=== PATIENT | female | born 1995 | race Caucasian/White ===

== ENCOUNTER 2017-04-30 11:26 | Emergency (ER) | payer BC, MEDICAID ==
[~2017-04-30] VITALS: Ht 147.3 cm; Wt 59.9 kg
--- NOTE | 2017-04-30 11:57 | NUR ---
Patient discharged to home in stable conditon. Written and verbal after care instructions given to patient. Patient verbalizes understanding of instructions.
== END 2017-04-30 11:58 | disposition home or self-care (01) ==
LOC: ER 11:47
DX: J20.9 Acute bronchitis, unspecified (principal); Z88.0 Allergy status to penicillin
CPT/HCPCS: 99283; A4663

== ENCOUNTER 2017-05-29 13:18 | Emergency (ER) | payer MEDICAID ==
[~2017-05-29] VITALS: Ht 147.3 cm; Wt 59.0 kg
--- NOTE | 2017-05-29 15:49 | NUR ---
DR MARKS AT THE BEDSIDE FOR EVAL AND EXAM.
[2017-05-29] MEDS ORDERED: KETOROLAC TROMETHAMINE 15 MG INJ IV ONE (16:00)
[2017-05-29] MEDS ORDERED: IV NORMAL SALINE 1000 ML BAG IV ONE (16:00)
[2017-05-29 16:33] LABS: BASOPHILS # (AUTO) 0.1 K/uL (0.0-8.0); BASOPHILS % (AUTO) 1.4 % (0.0-2.0); EOSINOPHILS % (AUTO) 0.1 % (0.0-7.0); HEMATOCRIT 39.4 % (37-47); HEMOGLOBIN 13.2 G/DL (12.0-16.0); LYMPHOCYTES # (AUTO) 0.9 K/UL (0.8-4.8); LYMPHOCYTES % (AUTO) 12.9 % (20.5-51.5); MEAN CORPUSCULAR HEMOGLOBIN 29.8 UUG (27.0-31.0); MEAN CORPUSCULAR HGB CONC 34 g/dL (32.0-37.0); MONOCYTES # (AUTO) 0.4 K/UL (0.1-1.30); MONOCYTES % (AUTO) 5.1 % (0.0-11.0); NEUTROPHILS # (AUTO) 5.5 K/UL (1.8-8.9); NEUTROPHILS % (AUTO) 80.5 % (38.5-71.5); PLATELET COUNT (AUTO) 480 K/UL (150-450); RED BLOOD CELL COUNT(AUTO) 4.43 MIL/UL (4.2-5.4); WHITE BLOOD COUNT (AUTO) 6.9 K/UL (4.0-11.2)
--- NOTE | 2017-05-29 16:36 | NUR ---
PT SIGNED CONSENT FOR IV CONTRAST, PLACED IN THE CHART.
[2017-05-29] MEDS ORDERED: KETOROLAC TROMETHAMINE 15 MG INJ ONE (16:44)
[2017-05-29 16:51] LABS: CARBON DIOXIDE 23 mmol/L (21-32); CHLORIDE 105 mmol/L (98-107); CREATININE 0.4 mg/dL (0.6-1.3); GLUCOSE 94 mg/dL (74-106); POTASSIUM 3.5 mmol/L (3.5-5.1); UREA NITROGEN, BLOOD 6 mg/dL (7-18)
[2017-05-29 16:56] LABS: ALANINE AMINOTRANSFERASE 55 U/L (14-59); ALKALINE PHOSPHATASE 84 U/L (50-136); ASPARTATE AMINOTRANSFERASE 29 U/L (15-37); BILIRUBIN,DIRECT 0.2 mg/dL (0.0-0.2); BILIRUBIN,TOTAL 0.9 mg/dL (0.2-1.0); LIPASE 72 U/L (73-393); TOTAL PROTEIN, SERUM 7.6 g/dL (6.4-8.2)
[2017-05-29] MEDS ORDERED: NORMAL SALINE FLUSH 10 ML DISP.SYRIN ONE (17:22)
[2017-05-29] MEDS ORDERED: IV NORMAL SALINE 250 ML IV ONE (17:22)
[2017-05-29] MEDS ORDERED: IOHEXOL 300MG/ML 100 ML INFUS..BTL ONE (17:22)
--- NOTE | 2017-05-29 17:23 | NUR ---
PT OUT OF ER FOR CT.
[2017-05-29 17:56] LABS: *BILIRUBIN,URIN NEGATIVE (NEGATIVE); *BLOOD, URINE 3+ (NEGATIVE); *CLARITY,URINE SLIGHTLY CLOUDY (CLEAR); *COLOR,URINE PINK (YELLOW); *KETONES,URINE TRACE (NEGATIVE); *PROTEIN,URINE NEGATIVE (NEGATIVE); *UROBILINOGEN,URINE 0.2 E.U./dl (NORMAL); LEUKOCYTE ESTERASE ,URINE 1+ (NEGATIVE); NITRITE, URINE NEGATIVE (NEGATIVE); UGLUCOSE NEGATIVE (NEGATIVE)
[2017-05-29 18:26] LABS: BACTERIA,URINE FEW /HPF (NONE SEEN); RBC,URINE 20-50 /HPF (0-3); SQUAMOUS EPITHELIAL CELL,UR FEW /HPF (NONE SEEN)
--- NOTE | 2017-05-29 19:08 | NUR ---
CARE ENDORSED TO FRANCHESKA GOLDMAN.
--- NOTE | 2017-05-29 19:15 | NUR ---
Received report from SUSI Marie. Assumed care of pt at this time. Pt resting in position of comfort for self. Pt sts pain is a 7/10 but declines medication at this time.
[2017-05-29] MEDS ORDERED: HYDROCODONE/APAP 10-325 MG TABLET PO ONE (19:45)
[2017-05-29] MEDS ORDERED: ONDANSETRON ODT 4 MG TAB.RAPDIS SL ONE (19:45)
--- NOTE | 2017-05-29 19:45 | NUR ---
pt requesting pain medication. Dr. Pal notified. Awaiting further orders.
[2017-05-29 20:03] VITALS: BP 109/58
[2017-05-29] MEDS ORDERED: ONDANSETRON ODT 4 MG TAB.RAPDIS ONE (20:03)
[2017-05-29] MEDS ORDERED: HYDROCODONE/APAP 10-325 MG TABLET ONE (20:03)
== END 2017-05-29 20:03 | disposition home or self-care (01) ==
LOC: ER 13:19
DX: M25.551 Pain in right hip (principal); M25.552 Pain in left hip; J45.909 Unspecified asthma, uncomplicated; Z88.0 Allergy status to penicillin
CPT/HCPCS: 36415; 72193; 83690; 84703; 85025; A4663; J1885; J3490; J7030; J7050; Q0162; Q9967

== ENCOUNTER 2019-10-08 10:52 | Emergency (ER) | payer BC, MEDICAID ==
[~2019-10-08] VITALS: Ht 147.3 cm; Wt 63.5 kg
--- NOTE | 2019-10-08 11:30 | NUR ---
ERMD AT BEDSIDE FOR HX AND PHYSICAL
--- NOTE | 2019-10-08 12:20 | NUR ---
Patient discharged to home in stable conditon. Written and verbal after care instructions given. Patient verbalizes understanding of instructions. AMBULATORY W/ STABLE GAIT W/ ASSIST OF CANE ALL BELONGINGS W/ PT
[2019-10-08 12:22] VITALS: BP 113/75
== END 2019-10-08 12:22 | disposition home or self-care (01) ==
LOC: ER 10:52
DX: I88.8 Other nonspecific lymphadenitis (principal); J45.909 Unspecified asthma, uncomplicated; R21 Rash and other nonspecific skin eruption; Z88.1 Allergy status to other antibiotic agents
CPT/HCPCS: A4663

== ENCOUNTER 2025-02-24 01:45 | Emergency (ER) | payer BC, OTHER ==
[~2025-02-24] VITALS: Ht 149.9 cm; Wt 65.8 kg
[2025-02-24] MEDS ORDERED: GABA-532 PO (02:02)
[2025-02-24] MEDS ORDERED: NAPR500T6 PO (02:02)
[2025-02-24] MEDS ORDERED: TRAZ-257 PO (02:02)
[2025-02-24] MEDS ORDERED: ONDANSETRON 4 MG/2 ML VIAL ONE ×2 (04:05→07:05)
[2025-02-24] MEDS ORDERED: KETOROLAC TROMETHAMINE 30 MG INJ ONE (04:05)
[2025-02-24 04:12] LABS: PLATELET COUNT (AUTO) 306 K/uL (179-408); RED BLOOD CELL COUNT(AUTO) 4.07 MIL/uL (3.63-4.92); RED CELL DISTRIBUTION WIDTH 14.7 % (12.3-17.7); WHITE BLOOD COUNT (AUTO) 8.3 K/uL (3.8-11.8)
[2025-02-24 04:17] LABS: CREATININE 0.6 mg/dL (0.6-1.3); SODIUM SERUM 141.0 mmol/L (136-145); UREA NITROGEN, BLOOD 11.0 mg/dL (7-18)
[2025-02-24 04:23] LABS: ASPARTATE AMINOTRANSFERASE 49.0 U/L (15-37); TOTAL PROTEIN, SERUM 6.0 g/dL (6.4-8.2)
[2025-02-24] MEDS: ONDANSETRON 4 MG/2 ML VIAL IV ONE ×2 (04:26→07:14)
[2025-02-24] MEDS: IV NS 1000 ML 1,000 ML IV ONE (04:26)
[2025-02-24] MEDS: KETOROLAC TROMETHAMINE 30 MG INJ IVP ONE (04:27)
[2025-02-24 04:58] LABS: *BILIRUBIN,URIN NEGATIVE (NEGATIVE); *BLOOD, URINE NEGATIVE (NEGATIVE); *CLARITY,URINE CLEAR (CLEAR); *COLOR,URINE YELLOW (YELLOW); *KETONES,URINE NEGATIVE (NEGATIVE); *PROTEIN,URINE NEGATIVE (NEGATIVE); *UROBILINOGEN,URINE 1.0 E.U./dl (NORMAL); LEUKOCYTE ESTERASE ,URINE NEGATIVE (NEGATIVE); NITRITE, URINE NEGATIVE (NEGATIVE); UGLUCOSE NEGATIVE (NEGATIVE)
[2025-02-24 05:05] LABS: *URINE HCG, QUAL NEGATIVE (NEGATIVE)
[2025-02-24] MEDS ORDERED: OMEP20TA20 PO ×2 (06:56→08:54)
[2025-02-24] MEDS ORDERED: ONDA4TAB5 PO ×2 (06:56→08:54)
[2025-02-24] MEDS ORDERED: MORPHINE SULFATE 2 MG/1 ML DISP.SYRIN ONE (07:05)
[2025-02-24] MEDS: MORPHINE SULFATE 2 MG/1 ML DISP.SYRIN IV ONE (07:14)
[2025-02-24 08:23] VITALS: BP 103/77; O2SAT 99
== END 2025-02-24 08:29 | disposition home or self-care (01) ==
LOC: ER 02:01
DX: K52.9 Noninfective gastroenteritis and colitis, unspecified (principal); F41.9 Anxiety disorder, unspecified; J45.909 Unspecified asthma, uncomplicated; R11.10 Vomiting, unspecified; M16.0 Bilateral primary osteoarthritis of hip; Z79.899 Other long term (current) drug therapy; Z88.0 Allergy status to penicillin; Z87.39 Personal history of other diseases of the musculoskeletal system and connective tissue
CPT/HCPCS: 99285; 74176; 96374; 96375; 96361; 80053; 81003; 84703; 83690; 85025; 87040; 36415; 96376; J1885; J2405 ×2; J2270; J7040; A4606; A4663